=== PATIENT | female | born 1980 | race Caucasian/White ===

== ENCOUNTER → 2016-07-04 | Outpatient (CLI) | payer OTHER ==
--- NOTE | 2016-07-05 07:41 | REP ---
CHEST PA AND LATERAL: 07/04/2016. CLINICAL HISTORY: Acute bronchitis symptoms. Dyspnea. FINDINGS: No prior study. Lungs are well inflated. Increased densities on the frontal view over the lower chest not seen on the lateral view and suspect overlying breast tissue artifact. There is no consolidation, effusion, pleural thickening, atelectasis or mass evident. The heart, mediastinal and hilar contours are normal. Airway intact. There are a few cuffed bronchi in the perihilar regions that might reflect some reactive airway disease or bronchitis. Aorta normal. Airway intact. Bones unremarkable. No free air. IMPRESSION: 1. Some minor peribronchial thickening that might reflect reactive airway disease or bronchitis. No acute cardiopulmonary change. Signed by Jonah Agrawal MD 07/05/2016 07:47 A
== END ==
LOC: M ADAMS 11:45
PROVIDERS: ATTEND Physician Assistant Medical
DX: J20.9 Acute bronchitis, unspecified (principal)

== ENCOUNTER 2016-08-18 20:36 | Emergency (ER) | payer OTHER ==
[~2016-08-18] VITALS: Ht 160 cm; Wt 104.3 kg
[2016-08-18 20:37] VITALS: BP 125/71
[2016-08-18] MEDS ORDERED: IBUPROFEN 600 MG TAB PO ONE (22:45)
[2016-08-18] MEDS ORDERED: IBUP600T26 PO (23:32)
--- NOTE | 2016-08-19 06:52 | REP ---
Clinical: Right chest wall pain . Technique: Frontal view of the chest with multiple views of the right hemithorax. Findings: Frontal view of the chest demonstrates no acute cardiopulmonary process. Multiple views of the right hemithorax demonstrates no obvious acute rib fracture or pathology. Impression: Normal right rib series Signed by Rico Cortez MD 08/19/2016 06:43 A
== END 2016-08-19 00:01 | disposition home or self-care (01) ==
LOC: M ED 23:35
DX: M94.0 Chondrocostal junction syndrome [Tietze] (principal); F17.210 Nicotine dependence, cigarettes, uncomplicated

== ENCOUNTER 2016-08-31 10:14 | Emergency (ER) | payer MEDICAID, OTHER, SELFPAY ==
[~2016-08-31] VITALS: Ht 162.6 cm; Wt 104.3 kg
[~2016-08-31 10:14] MED LIST: IBUP600T26 PO
[2016-08-31] MEDS ORDERED: KETOROLAC 60 MG/2 ML VIAL (J1885) IM ONE (11:30)
--- NOTE | 2016-08-31 11:56 | REP ---
RIGHT SHOULDER SERIES: Four views of the right shoulder are performed. There is no acute fracture or dislocation. A few small calcifications along the superolateral humeral head may represent tendinous or bursal calcifications. IMPRESSION: No acute fracture or dislocation. Signed by Bharat Canales MD 08/31/2016 12:54 P
[2016-08-31] MEDS ORDERED: AUGM875T27 PO (12:16)
[2016-08-31] MEDS ORDERED: MUCI600T34 PO (12:16)
[2016-08-31] MEDS ORDERED: CLAR1TAB2 PO (12:16)
[2016-08-31] MEDS ORDERED: MOBI7.5T10 PO (12:29)
[2016-08-31] MEDS ORDERED: PERC5TAB6 PO (12:29)
[2016-08-31] MEDS ORDERED: ZANA4TAB PO (12:29)
[2016-08-31 12:44] VITALS: BP 136/72
== END 2016-08-31 12:47 | disposition home or self-care (01) ==
LOC: M ED 11:05
DX: S43.401A Unspecified sprain of right shoulder joint, initial encounter (principal); X58.XXXA Exposure to other specified factors, initial encounter; Y92.099 Unspecified place in other non-institutional residence as the place of occurrence of the external cause; Y93.H2 Activity, gardening and landscaping; Y99.9 Unspecified external cause status; F17.200 Nicotine dependence, unspecified, uncomplicated
CPT/HCPCS: 73030; 96372; 99283; J1885

== ENCOUNTER → 2018-02-26 | Outpatient (REF) | payer OTHER ==
[2018-02-26 17:22] LABS: BASO # 0.1 10^3/uL (0.0-0.2); BASO % 0.6 % (0.0-1.0); EOS # 0.2 10^3/uL (0.0-0.50); EOS % 2.8 % (0.0-3.0); HEMATOCRIT 43.3 % (36.0-47.0); HEMOGLOBIN 14.3 g/dl (12.0-15.5); IMMATURE GRANULOCYTE % 0.3 % (0-3.0); LYMPH # 3.3 10^3/uL (1.5-4.5); LYMPH % 41.2 % (24.0-44.0); MEAN CORPUSCULAR VOLUME 87.8 fl (80.0-96.0); MONO # 0.4 10^3/uL (0.0-0.8); MONO % 4.9 % (0.0-5.0); NEUTROPHILS % 50.2 % (36.0-66.0); PLATELET COUNT, AUTOMATED 409 10^3/uL (150-450); RED BLOOD COUNT 4.93 10^6/uL (4.00-5.40); RED CELL DISTRIBUTION WIDTH 12.6 % (11.5-14.5); WHITE BLOOD COUNT 7.9 10^3/uL (4.0-10.0)
[2018-02-26 17:40] LABS: ALBUMIN 3.8 GM/DL (3.2-5.2); ALBUMIN/GLOBULIN RATIO 1.15 (1.00-1.93); ALKALINE PHOSPHATASE 78 U/L (45-117); ALT/SGPT 30 U/L (12-78); ANION GAP 7 MEQ/L (8-16); AST/SGOT 19 U/L (7-37); BILIRUBIN,TOTAL 0.4 MG/DL (0.2-1.0); BLOOD UREA NITROGEN 10 MG/DL (7-18); CALCIUM LEVEL 8.5 MG/DL (8.5-10.1); CARBON DIOXIDE LEVEL 27 MEQ/L (21-32); CHLORIDE LEVEL 105 MEQ/L (98-107); CHOLESTEROL LEVEL 161 MG/DL (<200); CHOLESTEROL RISK RATIO 4.025 (<5); CREATININE FOR GFR 0.71 MG/DL (0.55-1.30); FREE T4 1.07 NG/DL (0.76-1.46); GLOMERULAR FILTRATION RATE > 60.0 (>60); GLUCOSE, FASTING 95 MG/DL (70-100); HDL CHOLESTEROL 40 MG/DL (>40); LDL CHOLESTEROL 102 MG/DL (<100); NON-HDL-C 121 MG/DL; POTASSIUM SERUM 4.5 MEQ/L (3.5-5.1); SODIUM LEVEL 139 MEQ/L (136-145); TOTAL PROTEIN 7.1 GM/DL (6.4-8.2); TRIGLYCERIDES LEVEL 95 MG/DL (<150)
[2018-02-27 12:03] LABS: TOTAL 25(OH) VITAMIN D 26.5 NG/ML (30.0-100.0)
== END ==
LOC: M SFHCADAM 09:40
DX: F51.02 Adjustment insomnia (principal); E66.01 Morbid (severe) obesity due to excess calories; Z68.42 Body mass index [BMI] 45.0-49.9, adult; F17.210 Nicotine dependence, cigarettes, uncomplicated
CPT/HCPCS: 84443

== ENCOUNTER → 2018-05-26 | Outpatient (CLI) | payer OTHER ==
[~2018-05-26] MED LIST changes: +AUGM875T28 PO; +CLAR1TAB2 PO; +IBUP-1022 PO; -IBUP600T26 PO; +MOBI4TAB PO; +MUCI600T37 PO; +PERC5TAB12 PO; +ZANA4TAB PO
--- NOTE | 2018-05-30 10:58 | SLEEPCENT ---
DATE OF PROCEDURE: 05/26/2018 ORDERING PROVIDER: Sigrid Harding Nocturnal polysomnography was performed for evaluation of sleep physiology in this patient with a history of excessive somnolence and nonrestorative sleep. 8 hours and 2 minutes of data were reviewed. There were 421 minutes of sleep identified. Sleep latency was normal at 7.5 minutes. Rapid eye movement (REM) latency was delayed at 200 minutes. Sleep architecture improved after interventions were made. Overall sleep efficiency was 88.8%. The patient's electrocardiogram showed a sinus rhythm with an average heart rate of 80 beats per minute. Electroencephalogram (EEG) showed fairly normal waveforms for awake and sleep. There was 333 respiratory events identified of 10 seconds in duration or greater for an apnea-hypopnea index of 47.5. The events were associated with oxygen desaturations into the 70s. Having clearly established the presence of obstructive sleep apnea syndrome shortly after midnight, the test was stopped for the application of pressure therapy. A ResMed AirFit F20 full face mask of small size was applied, 4 cm of water pressure were applied to the circuit, and the lights were again extinguished. Throughout the remaining hours of testing, pressure titration was performed to address residual respiratory events. An optimal pressure was 13 cm resulted in REM sleep in the supine posture without respiratory event or oxygen desaturation. There was some limb activity but arousals were few. IMPRESSION: Severe obstructive sleep apnea syndrome (G47.33). Apnea-hypopnea index 47.5. RECOMMENDATIONS: Nightly use of pressure therapy 13 cm of water.
== END ==
LOC: M SLEEP 19:45
PROVIDERS: ATTEND Nurse Practitioner Family
DX: G47.33 Obstructive sleep apnea (adult) (pediatric) (principal)

== ENCOUNTER → 2018-07-04 | Outpatient (REF) | payer OTHER ==
[2018-07-04 16:09] LABS: ALBUMIN 3.8 GM/DL (3.2-5.2); ALT/SGPT 33 U/L (12-78); BILIRUBIN,TOTAL 0.2 MG/DL (0.2-1.0); BLOOD UREA NITROGEN 9 MG/DL (7-18); CALCIUM LEVEL 9.2 MG/DL (8.5-10.1); CARBON DIOXIDE LEVEL 26 MEQ/L (21-32); CHLORIDE LEVEL 107 MEQ/L (98-107); CREATININE FOR GFR 0.75 MG/DL (0.55-1.30); GLOMERULAR FILTRATION RATE > 60.0 (>60); GLUCOSE, FASTING 87 MG/DL (70-100); INR 0.95; POTASSIUM SERUM 4.2 MEQ/L (3.5-5.1); PROTHROMBIN TIME 12.8 SECONDS (12.1-14.4); SODIUM LEVEL 138 MEQ/L (136-145); TOTAL PROTEIN 6.6 GM/DL (6.4-8.2)
[2018-07-04 16:10] LABS: PARTIAL THROMBOPLASTIN TIME 28.3 SECONDS (25.4-37.6)
[2018-07-04 16:12] LABS: D-DIMER QUANT 335.76 ng/ml (<500)
[2018-07-04 16:34] LABS: CREATININE,RANDOM URINE 43.5 MG/DL; TOTAL PROTEIN,RANDOM URINE < 5.0 MG/DL (0.0-12.0)
== END ==
LOC: M SFHCPLAZ 13:58
PROVIDERS: ATTEND Family Medicine
DX: R60.0 Localized edema (principal)

== ENCOUNTER → 2018-07-21 | Outpatient (CLI) | payer OTHER ==
--- NOTE | 2018-07-23 09:01 | ECHO ---
DATE OF STUDY: 07/21/2018 REFERRING PROVIDER: ERLIN Chin PATIENT LOCATION: Outpatient. REASON FOR THE ECHOCARDIOGRAM: Generalized edema. 2D MEASUREMENTS: IVS: 1.1 cm LV: 5.5 cm LVPW: 1.1 cm LA: 3.1 Aorta: 2.6 cm IVC: 2.5 cm DOPPLER MEASUREMENTS: Peak velocity across the aortic valve: 1.8 m/s Peak velocity across the LVOT: 1.3 m/s Peak gradient across the aortic valve: 13 mmHg Mean gradient across the aortic valve: 6 mmHg Mitral E: 1.4 Mitral A: 0.9 with a ratio of 1.6 Maximum tricuspid valve velocity: 2.6 m/s 2D COMMENTS: 1. Normal left ventricle size, wall thickness, and normal global left ventricular systolic function. The estimated left ventricular systolic ejection fraction is 60% to 65%. 2. Normal left atrium. Normal right atrium and right ventricle noted in limited views. 3. The atrial septum appeared to be normal without evidence of defect or shunt. 4. Normal aortic root. 5. No pericardial effusion seen. 6. The aortic valve, mitral valve, tricuspid valve, and pulmonic valve appeared to be normal. The proximal pulmonary artery branches also appeared to be normal in size in limited views. 7. The inferior vena cava was mildly enlarged without any significant respiratory variation. Central venous pressure might be elevated. DOPPLER: It detects trace mitral regurgitation, trace tricuspid regurgitation with probably mild pulmonary hypertension. IMPRESSION: 1. Normal global left ventricular systolic and diastolic function. 2. Trace mitral regurgitation. 3. Trace tricuspid regurgitation with probably mild hypertension. 4. There are features of elevated central venous pressure. The inferior vena cava was mildly enlarged without any significant respiratory variation. 5. The study was technically limited due to poor acoustic window secondary to body habitus. [facility]
== END ==
LOC: M CARPUL 08:54
PROVIDERS: ATTEND Physician Assistant Medical
DX: I36.1 Nonrheumatic tricuspid (valve) insufficiency (principal); I34.0 Nonrheumatic mitral (valve) insufficiency

== ENCOUNTER → 2018-09-11 | Outpatient (REF) | payer OTHER ==
[2018-09-13 14:48] LABS: HPV HYBRID CAPTURE II Negative (Negative)
== END ==
LOC: M SFHCWAGY 13:45
PROVIDERS: ATTEND Nurse Practitioner Women's Health
DX: Z12.4 Encounter for screening for malignant neoplasm of cervix (principal)

== ENCOUNTER → 2019-04-05 | Outpatient (CLI) | payer OTHER ==
--- NOTE | 2019-04-06 02:06 | REP ---
Clinical: Left shoulder pain. Technique: Internal rotation, external rotation, and Y view of the left shoulder. Comparison: None. Findings: No acute fracture dislocation. The acromioclavicular and glenohumeral joints are relatively normal. Calcifications surrounding the humeral head suggest chronic bursal calcifications or tendinopathy. Subacromial space is normal. Impression: No acute fracture dislocation. Electronically Signed by Rico Cortez MD 04/06/2019 01:57 A
== END ==
LOC: M ADAMS 13:34
PROVIDERS: ATTEND Physician Assistant
DX: M25.512 Pain in left shoulder (principal)

== ENCOUNTER → 2019-10-12 | Outpatient (CLI) | payer OTHER | LOC: M LABSMTC 11:09 | PROVIDERS: ATTEND Orthopaedic Surgery | DX: Z01.818 Encounter for other preprocedural examination (principal); Z11.59 Encounter for screening for other viral diseases ==

== ENCOUNTER → 2019-10-15 | Outpatient (CLI) | payer OTHER ==
--- NOTE | 2019-10-15 12:43 | REP ---
Left rib series: Six views including PA chest. History: Chest pain. Comparison radiographs are from August 18, 2016. Findings: PA chest radiograph is unremarkable. No infiltrate is seen. There is no evidence of pneumothorax or hydrothorax. Mediastinum is not widened. Multiple views of the left rib cage demonstrate intact left ribs. No rib fracture or bony destructive lesion is seen. Impression: Negative left rib radiographs. Electronically Signed by John Abdalla MD 10/15/2019 12:35 P
== END ==
LOC: M ADAMS 11:35
PROVIDERS: ATTEND Physician Assistant
DX: R07.89 Other chest pain (principal)

== ENCOUNTER → 2019-11-22 | Outpatient (CLI) | payer OTHER | LOC: M LABSMTC 11:16 | PROVIDERS: ATTEND Orthopaedic Surgery | DX: Z20.828 Contact with and (suspected) exposure to other viral communicable diseases (principal) | CPT/HCPCS: C9803; U0003 ==

== ENCOUNTER 2022-01-07 19:15 | Emergency (ER) | payer OTHER ==
[~2022-01-07] VITALS: Ht 160 cm; Wt 109.1 kg
[2022-01-07 19:16] VITALS: BP 140/63
== END 2022-01-08 02:51 | disposition left against medical advice (07) ==
LOC: M ED 19:15
DX: Z53.21 Procedure and treatment not carried out due to patient leaving prior to being seen by health care provider (principal)

== ENCOUNTER 2022-05-13 08:17 | Emergency (ER) | payer OTHER ==
[~2022-05-13] VITALS: Ht 162.6 cm; Wt 133.2 kg
[2022-05-13 09:19] LABS: BASO # 0.1 10^3/uL (0.0-0.2); BASO % 0.8 % (0.0-1.0); EOS # 0.2 10^3/uL (0.0-0.5); EOS % 2.8 % (0.0-3.0); HEMOGLOBIN 14.4 g/dl (12.0-15.5); LYMPH # 3.3 10^3/uL (1.5-5.0); LYMPH % 39.6 % (24.0-44.0); MEAN CORPUSCULAR HEMOGLOBIN 27.9 pg (27.0-33.0); MEAN CORPUSCULAR HGB CONC 32.7 g/dl (32.0-36.5); MEAN CORPUSCULAR VOLUME 85.3 fl (80.0-96.0); MONO # 0.4 10^3/uL (0.0-0.8); MONO % 4.6 % (2.0-8.0); NEUTROPHILS # 4.3 10^3/uL (1.5-8.5); NEUTROPHILS % 51.8 % (36.0-66.0); PLATELET COUNT, AUTOMATED 376 10^3/uL (150-450); RED BLOOD COUNT 5.16 10^6/uL (4.00-5.40); WHITE BLOOD COUNT 8.3 10^3/uL (4.0-10.0)
[2022-05-13 09:40] LABS: BLOOD UREA NITROGEN 10 MG/DL (9-23); CALCIUM LEVEL 9.3 MG/DL (8.5-10.1); CARBON DIOXIDE LEVEL 27 MMOL/L (20-31); CHLORIDE LEVEL 106 MMOL/L (98-107); CREATININE FOR GFR 0.62 MG/DL (0.55-1.30); GLOMERULAR FILTRATION RATE > 60.0 (>58); GLUCOSE, FASTING 111 MG/DL (60-100); POTASSIUM SERUM 4.3 MMOL/L (3.5-5.1); SODIUM LEVEL 139 MMOL/L (136-145)
[2022-05-13] MEDS ORDERED: NITR100C2 (09:44)
[2022-05-13 10:08] VITALS: BP 128/80
== END 2022-05-13 10:32 | disposition home or self-care (01) ==
LOC: M ED 08:17
DX: T88.7XXA Unspecified adverse effect of drug or medicament, initial encounter (principal); M79.10 Myalgia, unspecified site; N39.0 Urinary tract infection, site not specified; F17.200 Nicotine dependence, unspecified, uncomplicated; Z79.2 Long term (current) use of antibiotics